=== PATIENT | male | born 1975 | race Caucasian/White ===

== ENCOUNTER 2017-12-22 19:38 | Observation (INO) ==
--- NOTE | 2017-12-22 20:14 | Emergency Department Note ---
Disposition Clinical Impression: Chest pain Disposition: Admitted As Inpatient Condition: Fair General Adult HPI - General Chief complaint: ED Chest Pain Stated complaint: head,back pain was put on doxycycline yesterday Time Seen by Provider: 12/22/17 20:07 - History of Present Illness Pain Scale: 7 - Related Data Home Medications Medication Instructions Recorded Confirmed Doxycycline 100 mg PO BID 12/22/17 12/22/17 Losartan [Cozaar] 25 mg PO DAILY 12/22/17 12/22/17 Metoprolol Succinate [Toprol Xl] 25 mg PO DAILY 12/22/17 12/22/17 Tramadol HCl [Ultram] 50 mg PO TID PRN 12/22/17 12/22/17 predniSONE [PredniSONE] See Taper PO AD 12/22/17 12/22/17 Previous Rx's Medication Instructions Recorded Omeprazole [PriLOSEC] 20 mg PO DAILY #30 capsule. 06/19/15 Allergies Allergy/AdvReac Type Severity Reaction Status Date / Time codeine Allergy Anaphylaxis Verified 12/22/17 20:05 lorazepam [From Ativan] Allergy Anaphylaxis Verified 12/22/17 20:05 Sulfa (Sulfonamide Allergy Anaphylaxis Verified 12/22/17 20:05 Antibiotics) Past Medical History - Past Medical History Medical history: Reports: non-contributory Psychiatric history: Reports: no psych history - Social History Smoking Status: Never smoker Smokeless Tobacco Status: No Alcohol use: Reports: none Drug use: Reports: none Course Vital Signs Temperature 98.4 F 12/22/17 20:03 Pulse Rate 112 12/22/17 20:03 Respiratory Rate 18 12/22/17 20:03 Blood Pressure 145/91 12/22/17 20:03 O2 Sat by Pulse Oximetry 96 12/22/17 20:03 Temperature 98.4 F 12/22/17 21:00 Pulse Rate 85 12/22/17 21:33 Respiratory Rate 16 12/22/17 21:33 Blood Pressure 114/58 12/22/17 21:33 O2 Sat by Pulse Oximetry 96 12/22/17 21:33 Oxygen Delivery Oxygen Delivery Room Air Medical Decision Making - Lab Data Result diagrams: 12/22/17 20:16 12/22/17 20:16 Lab Results 12/22/17 12/22/17 Range/Units 20:16 20:16 WBC 14.9 H (4.3-11.1) K/mcL RBC 5.78 H (4.19-5.50) M/mcL Hgb 17.3 H (12.9-16.9) g/dL Hct 49.6 (37.5-50.1) % MCV 85.8 (83.0-100.0) fL MCH 29.9 (28.0-33.3) pg MCHC 34.9 (31.6-35.5) g/dL RDW 12.6 (11.5-14.5) % Plt Count 295 (140-400) K/mcL MPV 11.1 (9.4-12.4) fL Immature Gran % 0.3 (0-4) % Seg Neutrophils % 79.6 % Lymphocytes % 12.4 % Monocytes % 7.1 % Eosinophils % 0.3 % Basophils % 0.3 % Neutrophils # 11.9 H (1.6-8.9) K/mcL Lymphocytes # 1.9 (0.6-4.6) K/mcL Monocytes # 1.1 (0.0-1.3) K/mcL Eosinophils # 0.0 (0.0-0.6) K/mcL Basophils # 0.0 (0.0-0.2) K/mcL Sodium 137 (136-145) mEq/L Potassium 4.2 (3.5-5.1) mEq/L Chloride 105 (98-107) mEq/L Carbon Dioxide 23 (23-29) mEq/L BUN 18 (6-20) mg/dL Creatinine 1.04 (0.70-1.30) mg/dL Est GFR ( Amer) > 60 (> 60) Est GFR (Non-Af Amer) > 60 (> 60) BUN/Creatinine Ratio 17 (6-26) Glucose 116 H (70-105) mg/dL Calculated Osmolality 287 (280-300) Calcium 10.0 (8.6-10.3) mg/dL Troponin I < 0.03 (< 0.04) ng/mL Attestation Statement - Attestation Attestation: I examined this patient and my medical decision-making was reviewed with the Resident Physician. I agree with the documented findings, disposition and treatment plan as described except to the extent set forth below. [id number] time provided Patient evaluated upon his arrival to the medical treatment area. EKG reviewed by me showing ST segment elevation isolated to lead to without teams stoning morphology. I evaluated this patient conjunction with the resident physician Dr. Otero
[2017-12-22 20:25] LABS: Basophils % 0.3 %; Eosinophils % 0.3 %; Hematocrit 49.6 % (37.5-50.1); Hemoglobin 17.3 g/dL (12.9-16.9); Immature Granulocytes % 0.3 % (0-4); Lymphocytes # 1.9 K/mcL (0.6-4.6); Lymphocytes % 12.4 %; Mean Corpuscular HGB Conc 34.9 g/dL (31.6-35.5); Mean Corpuscular Hemoglobin 29.9 pg (28.0-33.3); Mean Corpuscular Volume 85.8 fL (83.0-100.0); Mean Platelet Volume 11.1 fL (9.4-12.4); Monocytes # 1.1 K/mcL (0.0-1.3); Monocytes % 7.1 %; Neutrophils # 11.9 K/mcL (1.6-8.9); Platelet Count 295 K/mcL (140-400); Red Blood Count 5.78 M/mcL (4.19-5.50); Red Cell Distribution Width 12.6 % (11.5-14.5); Segmented Neutrophils % 79.6 %
--- NOTE | 2017-12-22 20:32 | Emergency Department Note ---
Disposition Clinical Impression: Chest pain Disposition: Admitted As Inpatient Condition: Fair Referrals: Raul Nazario DO [Primary Care Provider] - Forms: ED Satisfaction Letter Time of Disposition: 21:48 General Adult HPI - General Chief complaint: ED Chest Pain Stated complaint: head,back pain was put on doxycycline yesterday Time Seen by Provider: 12/22/17 20:07 Nursing Notes Reviewed: Yes Vital Signs Reviewed: Yes - History of Present Illness HPI Narrative: 42-year-old male presents from home for evaluation of a near syncopal event. Patient is a history of vasovagal syncope however, there was no vagal-inducing events preceding his near-syncope. Additionally, patient has a tenuous left- sided chest tightness with intermittent palpitations. Yesterday, patient had pain beneath his left scapula that radiated up to his neck and around to his left chest wall. He was seen by his primary care physician who suspected musculoskeletal etiology. Additionally, patient has a headache. Similar in character to his typical migrainous headaches however, more intense in severity. Patient is a history of hypertrophic cardiomyopathy with elevated left ventricular pressure. He is followed both by cardiology and electrophysiology at [facility]. ROS: Positive: As above Negative: Fever, chills, nausea, vomiting, dyspnea, diaphoresis, abdominal pain , upper extremity numbness/tingling/weakness/heaviness. Pain Scale: 7 - Related Data Home Medications Medication Instructions Recorded Confirmed Doxycycline 100 mg PO BID 12/22/17 12/22/17 Losartan [Cozaar] 25 mg PO DAILY 12/22/17 12/22/17 Metoprolol Succinate [Toprol Xl] 25 mg PO DAILY 12/22/17 12/22/17 Tramadol HCl [Ultram] 50 mg PO TID PRN 12/22/17 12/22/17 predniSONE [PredniSONE] See Taper PO AD 12/22/17 12/22/17 Previous Rx's Medication Instructions Recorded Omeprazole [PriLOSEC] 20 mg PO DAILY #30 capsule. 06/19/15 Allergies Allergy/AdvReac Type Severity Reaction Status Date / Time codeine Allergy Anaphylaxis Verified 12/22/17 20:05 lorazepam [From Ativan] Allergy Anaphylaxis Verified 12/22/17 20:05 Sulfa (Sulfonamide Allergy Anaphylaxis Verified 12/22/17 20:05 Antibiotics) All systems ED: reviewed and negative except as stated. Review of Systems: As Per HPI Past Medical History - Past Medical History Medical history: Reports: non-contributory Psychiatric history: Reports: no psych history - Social History Smoking Status: Never smoker Smokeless Tobacco Status: No Alcohol use: Reports: none Drug use: Reports: none Physical Exam Vital Signs Reviewed General: Patient is alert, oriented, and in mild distress from his headache. Head: atraumatic, normocephalic Eye: normal appearance, PERRL, EOMI, no scleral icterus, no conjunctival injection ENT: mucous membranes moist, normal external ear exam Neck: normal inspection, trachea midline, full ROM Chest: normal inspection, symmetric chest rise Respiratory: Good respiratory effort. Bilateral breath sounds are clear without wheezing, crackles, or rhonchi. Cardiovascular: Regular rate and rhythm. No clicks, rubs, gallops, or murmors. Normal heart sounds. Abdomen: Bowel sounds present normoactive. Abdomen is soft, nondistended, and nontender. No guarding or rebound. No organomegaly noted. Musculoskeletal: Spontaneously moving all extremities. Skin: warm, dry, intact. Neuro: Alert and oriented x4. Sensation light touch intact. Psych: Patient's affect is appropriate for situation. Course Course Narrative: Patient's story is concerning for a near syncopal event as well as his chest tightness on the left side both in the context of his cardiomyopathy. There are some EKG changes in isolated lead 2 however troponin is normal. Chest x- ray is unremarkable. Discussed the above with this patient and his . I discussed the patient's risk factors and my concerns about his story and EKG. I discussed limitations of troponin. They are agreeable to admission for continued evaluation for his chest pain to rule out ACS. Next I discussed the above with the having hospitalist, Dr. Santizo. He agrees to see the patient for continued evaluation for chest pain rule out ACS. Cardiology consult placed with no phone call made. EKG #1 EKG dated 12/22/17 at 20:07 interpreted as sinus tachycardia with a rate of 100. MN 176, curious 93, QTC 372. Normal axis. Concern for [address] elevation isolated to lead 2 with no reciprocal changes and no changes in surrounding anatomical leads; this could be early repol or. Compared to previous EKG date shows this ST elevation is new. EKG #2 EKG dated 12/22/17 at 21:12 interpreted as sinus rhythm with a rate of 97. MN 170, QRS 98, QTc 378. Normal axis. 0.[address] elevation isolated to lead II with no reciprocal changes and no changes in surrounding anatomical leads. This is an improvement from EKG #1 above. Chest X-Ray 12/22/17 20:07 IMPRESSION: 1. No acute cardiopulmonary disease. D/ / Jey Lewis MD / Jey Lewis MD Interpreting Provider: Jey Lewis MD Vital Signs Temperature 98.4 F 12/22/17 20:03 Pulse Rate 112 12/22/17 20:03 Respiratory Rate 18 12/22/17 20:03 Blood Pressure 145/91 12/22/17 20:03 O2 Sat by Pulse Oximetry 96 12/22/17 20:03 Temperature 98.4 F 12/22/17 21:00 Pulse Rate 85 12/22/17 21:33 Respiratory Rate 16 12/22/17 21:33 Blood Pressure 114/58 12/22/17 21:33 O2 Sat by Pulse Oximetry 96 12/22/17 21:33 Oxygen Delivery Oxygen Delivery Room Air Medical Decision Making - Lab Data Result diagrams: 12/22/17 20:16 12/22/17 20:16 Lab Results 12/22/17 12/22/17 Range/Units 20:16 20:16 WBC 14.9 H (4.3-11.1) K/mcL RBC 5.78 H (4.19-5.50) M/mcL Hgb 17.3 H (12.9-16.9) g/dL Hct 49.6 (37.5-50.1) % MCV 85.8 (83.0-100.0) fL MCH 29.9 (28.0-33.3) pg MCHC 34.9 (31.6-35.5) g/dL RDW 12.6 (11.5-14.5) % Plt Count 295 (140-400) K/mcL MPV 11.1 (9.4-12.4) fL Immature Gran % 0.3 (0-4) % Seg Neutrophils % 79.6 % Lymphocytes % 12.4 % Monocytes % 7.1 % Eosinophils % 0.3 % Basophils % 0.3 % Neutrophils # 11.9 H (1.6-8.9) K/mcL Lymphocytes # 1.9 (0.6-4.6) K/mcL Monocytes # 1.1 (0.0-1.3) K/mcL Eosinophils # 0.0 (0.0-0.6) K/mcL Basophils # 0.0 (0.0-0.2) K/mcL Sodium 137 (136-145) mEq/L Potassium 4.2 (3.5-5.1) mEq/L Chloride 105 (98-107) mEq/L Carbon Dioxide 23 (23-29) mEq/L BUN 18 (6-20) mg/dL Creatinine 1.04 (0.70-1.30) mg/dL Est GFR ( Amer) > 60 (> 60) Est GFR (Non-Af Amer) > 60 (> 60) BUN/Creatinine Ratio 17 (6-26) Glucose 116 H (70-105) mg/dL Calculated Osmolality 287 (280-300) Calcium 10.0 (8.6-10.3) mg/dL Troponin I < 0.03 (< 0.04) ng/mL
[2017-12-22] MEDS ORDERED: Aspirin 81 MG TAB.CHEW PO ONE (20:33)
[2017-12-22] MEDS ORDERED: Prochlorperazine 10 MG/2 ML VIAL IVP STA (20:34)
[2017-12-22 20:47] LABS: BUN/Creatinine Ratio 17 (6-26); Blood Urea Nitrogen 18 mg/dL (6-20); Carbon Dioxide 23 mEq/L (23-29); Chloride 105 mEq/L (98-107); Glucose 116 mg/dL (70-105); Osmolality,Calculated 287 (280-300); Potassium 4.2 mEq/L (3.5-5.1); Sodium 137 mEq/L (136-145); eGFR For African Americans > 60 (> 60); eGFR For Non-African Americans > 60 (> 60)
[2017-12-22 20:48] LABS: Troponin I < 0.03 ng/mL (< 0.04)
[2017-12-23] MEDS ORDERED: Naloxone 0.4 MG/ML INJ IVP PRN (05:58)
[2017-12-23 06:53] LABS: Hematocrit 45.3 % (37.5-50.1); Hemoglobin 15.6 g/dL (12.9-16.9); Immature Platelets 6.4 % (1.1-6.1); Mean Corpuscular HGB Conc 34.4 g/dL (31.6-35.5); Mean Corpuscular Hemoglobin 29.8 pg (28.0-33.3); Mean Corpuscular Volume 86.5 fL (83.0-100.0); Mean Platelet Volume 11.1 fL (9.4-12.4); Red Blood Count 5.24 M/mcL (4.19-5.50)
[2017-12-23 07:16] LABS: BUN/Creatinine Ratio 18 (6-26); Blood Urea Nitrogen 18 mg/dL (6-20); Carbon Dioxide 22 mEq/L (23-29); Chloride 108 mEq/L (98-107); Glucose 100 mg/dL (70-105); Osmolality,Calculated 288 (280-300); Potassium 3.9 mEq/L (3.5-5.1); Sodium 138 mEq/L (136-145); eGFR For African Americans > 60 (> 60); eGFR For Non-African Americans > 60 (> 60)
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
[2017-12-23 11:33] VITALS: BP 118/82
--- NOTE | 2017-12-23 12:17 | Discharge Summary ---
- NOTES TO OUTPATIENT PROVIDER Notes to Outpatient Provider: Admitted for chest pain reproducible to palpation. History of cardiomyopathy. Cardiac enzymes remained negative throughout stay EKG with no concerns for ischemic changes. Patient has regular follow-ups with [facility] cardiology. Uneventful hospital course Date of Encounter: 12/23/17 Time of Encounter: 11:56 - Discharge Diagnosis (1) Chest pain Priority: Primary Status: Acute Assessment and Plan: Patient presented with chest pain reproducible to palpation The pain does not appear to have a cardiac cause appears to be more of a musculoskeletal injury He was admitted for further workup and testing as the patient does have a history of cardiomyopathy and follows with cardiology at [facility] closely every 6 months EKG was not concerning for any ischemic changes and cardiac enzymes have been negative throughout stay Patient has remained hemodynamically stable, no events noted on telemetry, continues to deny chest pain, shortness of breath, diaphoresis or nausea He reports that he has had a recent cardiac workup completed at [facility] and that it was unremarkable He has had an uneventful hospital course and was requesting discharge home which I believe is reasonable He has been instructed to follow-up with PCP within 1 week of discharge. And to follow-up with his cardiology group at [facility] in 1-2 weeks Patient verbalizes understanding denies any further questions at this time. Additionally, he is instructed to return to the ED should chest pain return Qualifiers: Qualified Code(s): R07.9 - Chest pain, unspecified (2) History of hypertrophic cardiomyopathy Priority: Secondary Status: Acute Assessment and Plan: see above Hospital course: Mr. Marcelino is a 42 year old male Please see assessment and plan for hospital course Discharge discussed with: patient, family, nurse, ent consultant - Time Spent with Patient Total time spent providing and/or coordinating discharge services: Less than 30 minutes - Discharge Medications Home Medications: Omeprazole [PriLOSEC] 20 mg PO DAILY #30 capsule. 06/19/15 [Rx] Losartan [Cozaar] 25 mg PO DAILY 12/22/17 [History] Metoprolol Succinate [Toprol Xl] 25 mg PO DAILY 12/22/17 [History] Tramadol HCl [Ultram] 50 mg PO TID PRN 12/22/17 [History] predniSONE [PredniSONE] See Taper PO AD 12/22/17 [History] Allergies/Adverse Reactions: 3 Allergy/AdvReac Type Severity Reaction Status Date / Time codeine Allergy Anaphylaxis Verified 12/22/17 20:05 lorazepam [From Ativan] Allergy Anaphylaxis Verified 12/22/17 20:05 Sulfa (Sulfonamide Allergy Anaphylaxis Verified 12/22/17 20:05 Antibiotics) Date of admission: 12/22/17 22:17 Primary care physician: Raul Nazario DO Discharging clinician: Perfecto Morton Anticipated date of discharge: 12/23/17 - Constitutional Vitals: Temp Pulse Resp BP Pulse Ox 98.1 F 83 17 118/82 94 12/23/17 11:31 12/23/17 11:31 12/23/17 11:31 12/23/17 11:31 12/23/17 11:31 General appearance: Present: A&O X 3, pleasant, no acute distress - Head Head exam: Present: atraumatic, normocephalic - Eye Eye exam: Present: PERRL, conjuntiva pink, sclera anicteric Pupils: Present: PERRL - Neck Neck exam general surgery: Present: supple, trachea midline. Absent: lymphadenopathy - Respiratory Respiratory exam: Present: CTAB. Absent: accessory muscle use, rales, rhonchi, wheezes - Cardiovascular Cardiovascular exam: Present: RRR, +S1, +S2. Absent: diastolic murmur, gallop, rubs, systolic murmur - GI/Abdominal GI/Abdominal exam: Present: normal bowel sounds, soft, no peritoneal signs. Absent: distended, tenderness - Extremities Exam Extremities exam: Present: warm, radial pulses palpable and symmetrical. Absent : calf tenderness, cyanotic, pedal edema - Neurological Exam Neurological exam: Present: CN II-XII intact, oriented X3, no focal deficits. Absent: pronater drift, facial droop, speech deficit - Skin Skin exam: Present: dry, intact - Patient Status Disposition: Home, Self-Care Condition: Good Functional capacity at discharge: independent ambulation Overall status at discharge: patient is back to baseline - Discharge Instructions Instructions: Chest Pain (DC) Follow Up With: Raul Nazario DO [Primary Care Provider] - - Diet and Activity Activity: resume usual activities as tolerated Diet: low fat, low cholesterol
--- NOTE | 2017-12-24 17:43 | Electrocardiograph Report ---
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
--- NOTE | 2017-12-24 17:45 | Electrocardiograph Report ---
[address] [address] Test Date: 2017-12-22 Pat Name: Robert Marcelino Department: 104 Room: 3B39 Gender: M Budget Clerk: ELADIA : 1975 Requested By: Shorty Santizo Order Number: [id number] Reading MD: Eleazar Montez Measurements Intervals [place] Rate: 97 P: 19 [place]: 170 QRS: 16 QRSD: 98 T: 9 QT: 323 QTc: 378 Interpretive Statements SINUS RHYTHM Electronically Signed On 12-24-2017 17:43:27 EDT by Eleazar Montez
== END 2017-12-23 13:08 | disposition home or self-care (01) ==
LOC: EMEROO 19:38 → 3BNU 19:38
PROVIDERS: ADMIT Family Medicine; ATTEND Family Medicine